=== PATIENT | male | born 1950 | race Caucasian/White ===

== ENCOUNTER 2019-03-16 06:38 | Outpatient (CLI) | payer MEDICARE | END 2019-03-16 23:59 | disposition home or self-care (01) | LOC: CFH 06:38 | PROVIDERS: ATTEND Licensed Practical Nurse | DX: Z02.9 Encounter for administrative examinations, unspecified (principal) ==

== ENCOUNTER 2019-03-24 07:24 | Outpatient (CLI) | payer MEDICARE | END 2019-03-24 23:59 | disposition home or self-care (01) | LOC: CFH 07:24 | PROVIDERS: ATTEND Licensed Practical Nurse | DX: Z87.891 Personal history of nicotine dependence (principal) | CPT/HCPCS: 76706 ==

== ENCOUNTER 2020-12-23 07:01 | Outpatient (CLI) | payer MEDICARE | END 2020-12-23 23:59 | disposition home or self-care (01) | LOC: ROC 07:01 | PROVIDERS: ATTEND Radiology Radiation Oncology | DX: C15.9 Malignant neoplasm of esophagus, unspecified (principal); Z87.891 Personal history of nicotine dependence | CPT/HCPCS: 99214; G0463 ==

== ENCOUNTER 2021-02-10 10:52 | Outpatient (CLI) | payer MEDICARE | END 2021-02-10 23:59 | disposition home or self-care (01) | LOC: ROC 10:52 | PROVIDERS: ATTEND Radiology Radiation Oncology | DX: Z08 Encounter for follow-up examination after completed treatment for malignant neoplasm (principal); Z85.01 Personal history of malignant neoplasm of esophagus; D61.818 Other pancytopenia; Z87.891 Personal history of nicotine dependence | CPT/HCPCS: 99213; G0463 ==